=== PATIENT | female | born 1965 | race Caucasian/White ===

== ENCOUNTER 2018-12-24 14:14 | Emergency (ER) | payer SELFPAY ==
--- NOTE | 2018-12-24 14:28 | ER Document Report ---
ED Medical Screen (RME) - General Chief Complaint: Skin Problem Stated Complaint: LEFT ANKLE RASH Time Seen by Provider: 12/24/18 14:26 Mode of Arrival: Ambulatory Information source: Patient Notes: Patient with skin rash to bilateral lower extremities since June of this year. Patient with redness and scabbed lesions to extremities for the past month. Patient had been treated with antibiotics and steroids last month. Patient denies any improvement of her symptoms. Patient states symptoms started after going to the beach. I have greeted and performed a rapid initial assessment of this patient. A comprehensive ED assessment and evaluation of the patient, analysis of test results and completion of the medical decision making process will be conducted by additional ED providers. TRAVEL OUTSIDE OF THE [place] IN LAST 30 DAYS: No - Related Data Allergies/Adverse Reactions: latex Allergy (Verified 12/24/18 14:21) lidocaine Allergy (Verified 12/24/18 14:21) morphine Allergy (Verified 12/24/18 14:21) Absorbable Sutures Adverse Reaction (Intermediate, Uncoded 12/24/18 14:22) Past Medical History - Past Medical History Cardiac Medical History: Denies: Hx Coronary Artery Disease, Hx Hypercholesterolemia, Hx Hypertension Pulmonary Medical History: Reports: Hx Asthma Endocrine Medical History: Denies: Hx Diabetes Mellitus Type 2, Hx Hyperthyroidism Renal/ Medical History: Denies: Hx Peritoneal Dialysis GI Medical History: Reports: Hx Gastroesophageal Reflux Disease Psychiatric Medical History: Denies: Hx Depression Past Surgical History: Reports: Hx Cholecystectomy Physical Exam - General General appearance: Appears well, Alert Notes: Erythema surrounding skin rash to anterior aspect of left lower leg, crusted scabbed lesion to the anterior aspect of left ankle
[2018-12-24 15:53] LABS: ABSOLUTE EOSINOPHILS # (AUTO) 0.6 10^3/uL (0.0-0.6); ABSOLUTE LYMPHOCYTES (AUTO) 0.9 10^3/uL (0.5-4.7); ABSOLUTE MONOCYTES (AUTO) 0.3 10^3/uL (0.1-1.4); ABSOLUTE NEUT (AUTO) 4.1 10^3/uL (1.7-8.2); BASOPHILS % (AUTO) 0.2 % (0-2); EOSINOPHILS % (AUTO) 9.4 % (0-6); HEMATOCRIT 46.4 % (36.0-47.0); HEMOGLOBIN 15.8 g/dL (12.0-15.5); LYMPHOCYTES % (AUTO) 15.7 % (13-45); MEAN CORPUSCULAR HEMOGLOBIN 30.9 pg (27.0-33.4); MEAN CORPUSCULAR HGB CONC 34.1 g/dL (32.0-36.0); MEAN CORPUSCULAR VOLUME 91 fl (80-97); MONOCYTES % (AUTO) 5.1 % (3-13); PLATELET COUNT 217 10^3/uL (150-450); RED BLOOD COUNT 5.12 10^6/uL (3.72-5.28); RED CELL DISTRIBUTION WIDTH 14.9 % (11.5-14.0); SEGMENTED NEUTROPHILS % (AUTO) 69.6 % (42-78); TOTAL CELLS COUNTED % (AUTO) 100 %; WHITE BLOOD COUNT 5.9 10^3/uL (4.0-10.5)
[2018-12-24 16:05] LABS: ALBUMIN 4.3 g/dL (3.5-5.0); ALKALINE PHOSPHATASE 83 U/L (38-126); ANION GAP 8 (5-19); ASPARTATE AMINO TRANSFERASE 20 U/L (14-36); BILIRUBIN,DIRECT 0.2 mg/dL (0.0-0.4); BILIRUBIN,TOTAL 0.5 mg/dL (0.2-1.3); BLOOD UREA NITROGEN 13 mg/dL (7-20); CALCIUM 9.9 mg/dL (8.4-10.2); CARBON DIOXIDE 26 mmol/L (22-30); CHLORIDE 106 mmol/L (98-107); GLUCOSE 92 mg/dL (75-110); POTASSIUM 3.9 mmol/L (3.6-5.0); TOTAL PROTEIN 7.4 g/dL (6.3-8.2)
[2018-12-24] MEDS ORDERED: HYDROXYZINE HCL INJ 50 MG/1 ML VIAL IM ONE (16:53)
--- NOTE | 2018-12-24 16:59 | ER Document Report ---
ED General - General Chief Complaint: Leg Pain Stated Complaint: LEFT ANKLE RASH Time Seen by Provider: 12/24/18 14:26 Mode of Arrival: Ambulatory TRAVEL OUTSIDE OF THE [place] IN LAST 30 DAYS: No - HPI Notes: 53-year-old female with a history of a chronic/persistent rash which started on lower extremities and has now become more generalized over an interval of about 6 months. She is used some [id number] medications with partial clearing intermittently but can never seem to get rid of this. She has pet dogs and cats in her home. She is not taking any prescription medications. She is not diabetic. She has no known history of peptic ulcer disease. She is not aware of any other household members having skin rash or itching. - Related Data Allergies/Adverse Reactions: latex Allergy (Verified 12/24/18 14:21) lidocaine Allergy (Verified 12/24/18 14:21) morphine Allergy (Verified 12/24/18 14:21) Absorbable Sutures Adverse Reaction (Intermediate, Uncoded 12/24/18 14:22) Past Medical History - General Information source: Patient - Social History Smoking Status: Current Every Day Smoker Chew tobacco use (# tins/day): No Frequency of alcohol use: Rare Drug Abuse: Marijuana Family History: CAD Patient has suicidal ideation: No Patient has homicidal ideation: No - Past Medical History Cardiac Medical History: Denies: Hx Coronary Artery Disease, Hx Hypercholesterolemia, Hx Hypertension Pulmonary Medical History: Reports: Hx Asthma Endocrine Medical History: Denies: Hx Diabetes Mellitus Type 2, Hx Hyperthyroidism Renal/ Medical History: Denies: Hx Peritoneal Dialysis GI Medical History: Reports: Hx Gastroesophageal Reflux Disease Psychiatric Medical History: Denies: Hx Depression Past Surgical History: Reports: Hx Cholecystectomy Review of Systems - Review of Systems Notes: Constitutional: Negative for fever. HENT: Negative for sore throat. Eyes: Negative for visual changes. Cardiovascular: Negative for chest pain. Respiratory: Negative for shortness of breath. Gastrointestinal: Negative for abdominal pain, vomiting or diarrhea. Genitourinary: Negative for dysuria. Musculoskeletal: Negative for back pain. Skin: Rash and severe itching as indicated in HPI. Neurological: Negative for headaches, weakness or numbness. 10 point ROS negative except as marked above and in HPI. Physical Exam - Vital signs Vitals: Temp Pulse Resp BP Pulse Ox 98.4 F 93 18 173/84 H 97 12/24/18 14:20 12/24/18 14:20 12/24/18 14:20 12/24/18 14:20 12/24/18 14:20 Notes: GENERAL: Mildly obese middle-aged female who is scratching constantly. SKIN: Patient has a lot of secondary skin lesions and excoriations of all 4 extremities and trunk. She is noted to have what appear to be burrows in the interdigital web spaces of both upper and lower extremities. HEAD: Normocephalic atraumatic. EYES: PERRLA. Conjunctivae and sclerae clear. EARS: CANALS AND TMS CLEAR. NOSE: CLEAR. MOUTH: Moist mucosa. Good dentition. No stridor or edema. No drooling. NECK: Supple. No masses or thyromegaly. No adenopathy. Carotids 2+ without bruits. No JVD. BACK: Symmetrical without tenderness. CHEST: Respirations unlabored. Breath sounds clear and symmetrical. HEART: Regular rhythm. No murmur gallop or rub. ABDOMEN: Soft nontender without masses, organomegaly or rebound. Bowel sounds normally active. No bruits. GENITALIA: Deferred. EXTREMITIES: No edema. No calf tenderness. Cap refill less than 1.5 seconds. Dorsalis pedis and posterior tibial pulses 3+ and symmetrical. NEUROLOGICAL: GCS 15. Alert and oriented x3. Normal gait. Fluent speech. Cranial nerves II through XII intact. Sensorimotor and cerebellar normal. Normal tone. Course - Re-evaluation Re-evalutation: 12/24/18 16:59 History and physical findings are most suggestive of scabies. We will treat the patient symptomatically here with IM hydroxyzine. - Vital Signs Vital signs: Temp Pulse Resp BP Pulse Ox 98.4 F 93 18 173/84 H 97 12/24/18 14:20 12/24/18 14:20 12/24/18 14:20 12/24/18 14:20 12/24/18 14:20 - Laboratory Result Diagrams: 12/24/18 15:31 12/24/18 15:31 Laboratory results interpreted by me: 12/24/18 12/24/18 15:31 15:31 Hgb 15.8 H RDW 14.9 H Eos % (Auto) 9.4 H Est GFR (MDRD) Non-Af 54 L Discharge - Discharge Clinical Impression: Scabies Condition: Stable Disposition: HOME, SELF-CARE Instructions: Scabies ([facility]) Additional Instructions: Follow-up with primary care physician as instructed and return to the emergency department as needed for new or worsening symptoms. Prescriptions: Hydroxyzine HCl [Atarax 25 mg Tablet] 1 - 2 tab PO QID #25 tablet Prednisone [Deltasone 20 mg Tablet] 2 tab PO DAILY 5 Days #10 tablet Permethrin [Elimite] 60 gm TP ONCE PRN 1 Days cream.gm. PRN Reason: Referrals: [facility] [Provider Group] - Follow up as needed
[2018-12-24 17:48] VITALS: BP 126/55
== END 2018-12-24 17:48 | disposition home or self-care (01) ==
LOC: ER 14:14
DX: B86 Scabies (principal); E66.9 Obesity, unspecified; F17.200 Nicotine dependence, unspecified, uncomplicated; F12.10 Cannabis abuse, uncomplicated; J45.909 Unspecified asthma, uncomplicated; Z91.040 Latex allergy status; Z88.4 Allergy status to anesthetic agent; Z88.5 Allergy status to narcotic agent
CPT/HCPCS: 36415; 85025; 80053; J3410; 96372; 99283